=== PATIENT | female | born 1975 | race Caucasian/White ===

== ENCOUNTER 2020-02-27 10:10 | Outpatient (CLI) | payer BC | END 2020-02-27 23:59 | disposition home or self-care (01) | LOC: RAD 10:10 | PROVIDERS: ATTEND Physician Assistant Surgical | DX: R55 Syncope and collapse (principal); R29.90 Unspecified symptoms and signs involving the nervous system; R47.89 Other speech disturbances; H53.9 Unspecified visual disturbance | CPT/HCPCS: 95819 ==